=== PATIENT | male | born 1970 | race Caucasian/White ===

== ENCOUNTER 2016-09-10 11:51 | Emergency (ER) | payer MEDICAID ==
[~2016-09-10] VITALS: Ht 172.7 cm; Wt 84.6 kg
[~2016-09-10 11:51] MED LIST: BUSP10TA PO; LISI-170 PO
[2016-09-10] MEDS ORDERED: BLOOD PRESSURE MEDS (12:14)
[2016-09-10] MEDS ORDERED: SODIUM CHLORIDE 0.9% 1,000 ML IV ONE (12:18)
[2016-09-10] MEDS ORDERED: ONDANSETRON 2MG/ML, 2ML IVPush ONE (12:30)
[2016-09-10] MEDS ORDERED: SODIUM CHLORIDE 0.9% 1,000ML IVBOLUS ONE (12:30)
[2016-09-10] MEDS ORDERED: MAGNESIUM SULFATE 1 GM, THIAMINE 100 MG, FOLIC ACID 1 MG, MVI ADULT 10 ML in SODIUM CHL... IV ONE (12:30)
[2016-09-10] MEDS ORDERED: LORazepam 2 MG/ML, 1ML IVPush ONE ×2 (12:30→14:00)
[2016-09-10] MEDS ORDERED: ONDANSETRON 2MG/ML, 2ML ONE (12:33)
[2016-09-10] MEDS ORDERED: LORazepam 2 MG/ML, 1ML ONE ×3 (12:34→13:53)
[2016-09-10 12:46] LABS: BLOOD UREA NITROGEN 6 mg/dL (7-18)
[2016-09-10 12:49] LABS: ASPARTATE AMINO TRANSFERASE 74 U/L (15-37)
[2016-09-10] MEDS ORDERED: LORazepam 2 MG/ML, 1ML IVPush STA (12:53)
[2016-09-10 14:53] VITALS: BP 116/65
== END 2016-09-10 14:55 | disposition home or self-care (01) ==
LOC: ED 13:04
DX: E87.1 Hypo-osmolality and hyponatremia (principal); F10.231 Alcohol dependence with withdrawal delirium
CPT/HCPCS: 36415; 80053; 85025; 96365; 96366; 96375; 96376; 99285; J2060; J2405; J3411; J3475; J7030

== ENCOUNTER 2017-01-26 09:45 | Emergency (ER) | payer MEDICAID ==
[~2017-01-26] VITALS: Ht 172.7 cm; Wt 90.8 kg
[~2017-01-26 09:45] MED LIST changes: +BLOOD PRESSURE MEDS
[2017-01-26] MEDS ORDERED: LORazepam 2 MG/ML, 1ML ONE ×2 (10:29→11:10)
[2017-01-26] MEDS ORDERED: THIAMINE 100MG TABLET ONE (10:29)
[2017-01-26] MEDS ORDERED: ONDANSETRON 2MG/ML, 2ML ONE (10:29)
[2017-01-26] MEDS ORDERED: SODIUM CHLORIDE FLUSH 10ML SYR IVF ONE (10:30)
[2017-01-26] MEDS ORDERED: ONDANSETRON 2MG/ML, 2ML IVPush ONE (10:30)
[2017-01-26] MEDS ORDERED: SODIUM CHLORIDE 0.9% 1,000ML IVBOLUS ONE (10:30)
[2017-01-26] MEDS ORDERED: THIAMINE 100MG TABLET PO ONE (10:30)
[2017-01-26 10:34] LABS: HEMATOCRIT 41.7 % (39.2-51.8); HEMOGLOBIN 14.3 g/dL (13.7-18.0); WHITE BLOOD COUNT 6.4 x10^3/uL (3.4-10)
[2017-01-26] MEDS: LORazepam 2 MG/ML, 1ML IVPush PRN ×2 (10:34→11:14)
[2017-01-26 10:38] VITALS: BP 142/85
[2017-01-26 10:44] LABS: ASPARTATE AMINO TRANSFERASE 29 U/L (15-37); BLOOD UREA NITROGEN 15 mg/dL (7-18)
== END 2017-01-26 11:52 | disposition home or self-care (01) ==
LOC: ED 10:43
DX: F10.230 Alcohol dependence with withdrawal, uncomplicated (principal); F10.220 Alcohol dependence with intoxication, uncomplicated
CPT/HCPCS: 36415; 80053; 80307; 85025; 85610; 96361; 96374; 96375; 96376; 99284; J2060; J2405; J7030; G0479